=== PATIENT | female | born 1990 | race Caucasian/White ===

== ENCOUNTER 2022-05-25 09:10 | Emergency (ER) | payer OTHER ==
[2022-05-25 09:17] VITALS: BP 115/70; PULSE 76; TEMP 98.1; BMI 24.4
[2022-05-25] MEDS ORDERED: KETOROLAC TROMETHAMINE 30 MG/1 ML VIAL IM ONE (11:19)
[2022-05-25] MEDS ORDERED: KETOROLAC TROMETHAMINE 30 MG/1 ML VIAL ONE (11:24)
== END 2022-05-25 11:51 | disposition home or self-care (01) ==
LOC: JERFT 09:10 → JER 09:10 → JERFT 11:51
PROC: 3E0233Z Introduction of Anti-inflammatory into Muscle, Percutaneous Approach (ICD-10-PCS; principal; 2022-05-25)
DX: S99.922A Unspecified injury of left foot, initial encounter (principal); W10.9XXA Fall (on) (from) unspecified stairs and steps, initial encounter
CPT/HCPCS: 73610-TC-LT-FY; 73630-TC-LT; 99284-25

== ENCOUNTER 2022-11-29 11:47 | Emergency (ER) | payer OTHER ==
[2022-11-29 11:53] VITALS: BP 121/62; PULSE 77; RESP 18; TEMP 98.1; BMI 26.9
[2022-11-29] MEDS ORDERED: FLUCONAZOLE 150 MG TABLET PO ONE ×2 (13:29→14:24)
[2022-11-29 13:49] LABS: BASO % 0.5 % (0-2.0); EOS % 1.4 % (0-4.5); HEMATOCRIT 39.8 % (32.4-45.2); HEMOGLOBIN 13.2 GM/dL (10.7-15.3); LYMPH % 20.6 % (8-40); MCH 31.5 pg (25.7-33.7); MCHC 33.2 g/dl (32.0-36.0); MEAN CELL VOLUME 94.9 fl (80-96); MEAN PLT VOLUME 8.5 fl (7.5-11.1); MONO % 7.8 % (3.8-10.2); NEUT % 69.7 % (42.8-82.8); PLATELET COUNT 197 10^3/uL (134-434); RDW 12.6 % (11.6-15.6); WHITE BLOOD COUNT 9.2 K/mm3 (4.0-10.0)
[2022-11-29 13:54] LABS: HCG,QUALITATIVE URINE Negative
[2022-11-29 13:57] LABS: URINE APPEARANCE CLEAR; URINE BILIRUBIN NEGATIVE (NEGATIVE); URINE COLOR YELLOW; URINE GLUCOSE (UA) NEGATIVE (NEGATIVE); URINE KETONE NEGATIVE (NEGATIVE); URINE LEUK ESTERASE NEGATIVE (NEGATIVE); URINE NITRITE NEGATIVE (NEGATIVE); URINE PROTEIN NEGATIVE (NEGATIVE); URINE UROBILINOGEN 0.2 mg/dL (0.2-1.0)
[2022-11-29 14:10] LABS: ALBUMIN 3.7 g/dl (3.4-5.0); CALCIUM 8.7 mg/dL (8.5-10.1)
[2022-11-29 14:11] LABS: BLOOD UREA NITROGEN 12.4 mg/dL (7-18)
[2022-11-29 14:13] LABS: CREATININE 0.8 mg/dL (0.55-1.3)
[2022-11-29 14:15] LABS: BILIRUBIN,TOTAL 1.5 mg/dL (0.2-1); TOT PROT 7.4 g/dl (6.4-8.2)
== END 2022-11-29 16:20 | disposition home or self-care (01) ==
LOC: JER 11:47
DX: N83.201 Unspecified ovarian cyst, right side (principal); B37.9 Candidiasis, unspecified
CPT/HCPCS: 36415; 76830-TC; 80053; 81003; 83690; 84703; 85025; 87086; 87491; 87591; 99284-25

== ENCOUNTER 2023-09-14 15:57 | Emergency (ER) | payer SELFPAY ==
[2023-09-14 16:06] VITALS: RESP 20; BMI 27.4
[2023-09-14 17:21] VITALS: BP 112/75; PULSE 81; TEMP 98.4
[2023-09-14] MEDS ORDERED: KETOROLAC TROMETHAMINE 15 MG/ML VIAL IM ONE (17:35)
[2023-09-14] MEDS ORDERED: LIDOCAINE 5% TOPICAL PATCH TP ONE (17:39)
[2023-09-14] MEDS ORDERED: KETOROLAC TROMETHAMINE 15 MG/ML VIAL ONE (18:12)
[2023-09-14] MEDS ORDERED: LIDOCAINE 4% PATCH TP ONE (18:12)
[2023-09-14 18:46] LABS: URINE APPEARANCE CLEAR; URINE BILIRUBIN NEGATIVE (NEGATIVE); URINE COLOR YELLOW; URINE GLUCOSE (UA) NEGATIVE (NEGATIVE); URINE KETONE NEGATIVE (NEGATIVE); URINE LEUK ESTERASE NEGATIVE (NEGATIVE); URINE NITRITE NEGATIVE (NEGATIVE); URINE PROTEIN NEGATIVE (NEGATIVE); URINE UROBILINOGEN 0.2 mg/dL (0.2-1.0)
[2023-09-14 18:49] LABS: HCG,QUALITATIVE URINE Negative
[2023-09-14] MEDS ORDERED: LIDOCAINE PATCH REMOVAL MC ONE (22:00)
== END 2023-09-14 20:18 | disposition home or self-care (01) ==
LOC: JER 15:57
PROC: 3E0233Z Introduction of Anti-inflammatory into Muscle, Percutaneous Approach (ICD-10-PCS; principal; 2023-09-14)
DX: R20.2 Paresthesia of skin (principal); R53.1 Weakness; M54.2 Cervicalgia
CPT/HCPCS: 73030-TC-RT-FY; 81003; 84703; 87086; 99284-25